=== PATIENT | male | born 1970 | race Caucasian/White ===

== ENCOUNTER 2022-02-14 20:28 | Emergency (ER) | payer OTHER ==
[2022-02-14 21:42] LABS: ESTIMATED GFR 67 mL/min (>60)
== END 2022-02-14 23:20 | disposition home or self-care (01) ==
LOC: JD.ED 20:28
DX: R07.89 Other chest pain (principal); Z20.822 Contact with and (suspected) exposure to COVID-19
CPT/HCPCS: 36415; 71045; 71045-26; 80053; 83735; 84484; 85025; 85379; 86140; 93005; 93010; 99283; 99285; U0002